=== PATIENT | male | born 1955 | race Two or more races ===

== ENCOUNTER 2024-07-11 05:58 | Inpatient (IN) | payer OTHER, MEDICAID ==
[~2024-07-11] VITALS: Ht 165.1 cm; Wt 74.3 kg
[2024-07-11 06:30] VITALS: PULSE 52; RESP 13; O2SAT 100
[2024-07-11] MEDS: SODIUM CHLORIDE 0.9% 1,000 ML IV ONE (06:34)
--- NOTE | 2024-07-11 06:41 | ED.PDOC ---
HPI (NEURO) HPI Comments 69 y/o M, BIBA, with PMHx of DM presents to the ED for CC of s/p near syncopal episode. EMS reports, patient is coming from home where he had a witnessed near syncopal episode by family members when ambulating to restroom. EMS states, upon arrival to scene patient was A&OX4 and heart rhythm found to be sinus maude. In route to ED, IV fluids were given. Patient denies head injury, LOC, nausea, vomiting, or headache. No other associated symptoms, modifiers, recent injuries or sick contacts present at this time. Chief Complaint: Syncope Time Seen by MD: 06:30 Reviewed Notes: Nurses Notes, Practice Consultant Notes, Medications, Allergies Information Source: Patient, Emergency Med Personnel Mode of Arrival: Ambulatory Severity: Moderate Headache Severity: None Timing: Minutes Duration: Since onset Prehospital treatment: IVF Onset: At rest Circumstances: Spontaneous Symptoms: Near syncope After: Normal Mentation History of: None Modifying factors: Nothing Associated Signs and Symptoms: None Past Medical History PAST MEDICAL HISTORY: DM Surgical History: Denies all surgeries Family History Family History: Unknown Social History Smoker: Non-Smoker Alcohol: Denies ETOH Use Drugs: Denies Drug Use Lives In: Home Constitutional: denies: chills, diaphoresis, fatigue, fever, malaise, sweats, weakness, others EENTM: denies: blurred vision, double vision, ear bleeding, ear discharge, ear drainage, ear pain, ear ringing, eye pain, eye redness, hearing loss, mouth pain, mouth swelling, nasal discharge, nose bleeding, nose congestion, nose pain, photophobia, tearing, throat pain, throat swelling, voice changes, others Respiratory: denies: cough, hemoptysis, orthopnea, SOB at rest, shortness of breath, SOB with excertion, stridor, wheezing, others Cardiovascular: denies: chest pain, dizzy spells, diaphoresis, Dyspnea on exertion, edema, irregular heart beat, left arm pain, lightheadedness, palpitations, PND, syncope, others Gastrointestinal: denies: abdomen distended, abdominal pain, blood streaked bowels, constipated, diarrhea, dysphagia, difficulty swallowing, hematemesis, melena, nausea, poor appetite, poor fluid intake, rectal bleeding, rectal pain, vomiting, others Genitourinary: denies: burning, dysuria, flank pain, frequency, hematuria, incontinence, penile discharge, penile sore, pain, testicle pain, testicle swelling, urgency, others Neurological: reports: fainting; denies: dizziness, headache, left sided numbness, left sided weakness, numbness, paresthesia, pre-existing deficit, right sided numbness, right sided weakness, seizure, speech problems, tingling, tremors, weakness, others Musculoskeletal: denies: back pain, gout, joint pain, joint swelling, muscle pain, muscle stiffness, neck pain, others Integumetry: denies: bruises, change in color, change in hair/nails, dryness, laceration, lesions, lumps, rash, wounds, others Allergic/Immunocompromised: denies: Difficulty Healing, Frequent Infections, Hives, Itching, others Hematologic/Lymphatic: denies: anemia, blood clots, easy bleeding, easy bruising, swollen glands, others Endocrine: denies: excessive hunger, excessive sweating, excessive thirst, excessive urination, flushing, intolerance to cold, intolerance to heat, unexplained weight gain, unexplained weight loss, others Psychiatric: denies: anxiety, bipolar disorder, depression, hopeless, panic disorder, schizophrenia, sleepless, suicidal, others All Other Systems: Reviewed and Negative Physical Exam General Appearance: Moderate Distress HEENT: Normal ENT Inspection, Pharynx Normal, TMs Normal Neck: Full Range of Motion, Non-Tender, Normal, Normal Inspection Respiratory: Chest Non-Tender, Lungs Clear, No Accessory Muscle Use, No Respiratory Distress, Normal Breath Sounds Cardiovascular: Bradycardia, No Edema, No JVD, No Murmur, No Gallop, Normal Peripheral Pulses Breast Exam: Deferred Gastrointestinal: No Organomegaly, Non Tender, No Pulsatile Mass, Normal Bowel Sounds, Soft Genitalia: Deferred Pelvic: Deferred Rectal: Deferred Extremities: No calf tenderness, Normal capillary refill, Normal inspection, Normal range of motion, Non-tender, No pedal edema Musculoskeletal : Apperance: Normal Neurologic: Alert, 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 Was a procedure done?: No Differential Diagnosis (SZ) Seizure: Psychogenic Seizure, Closed Head Injury, CVA/TIA General Weakness: Anemia, Dehydration, Electrolyte imbalance X-Ray, Labs, Meds, VS Vital Signs Date Time Temp Pulse Resp B/P (MAP) Pulse Ox O2 Delivery O2 Flow Rate FiO2 07/11/24 06:42 49 07/11/24 06:35 97.3 54 11 143/74 (97) 100 97.3 07/11/24 06:30 52 13 100 Room Air* 0 21 07/11/24 06:02 49 07/11/24 05:58 98.3 50 16 118/73 (88) 98 98.3 Lab Test 07/11/24 07:04 07/11/24 06:51 Range/Units White Blood Count Pending Red Blood Count Pending Hemoglobin Pending Hematocrit Pending Mean Corpuscular Volume Pending Mean Corpuscular Hemoglobin Pending Mean Corpuscular Hemoglobin Concent Pending Red Cell Distribution Width Pending Platelet Count Pending Mean Platelet Volume Pending Neutrophils (%) (Auto) Pending Lymphocytes (%) (Auto) Pending Monocytes (%) (Auto) Pending Basophils (%) (Auto) Pending Neutrophils # (Auto) Pending Lymphocytes # (Auto) Pending Monocytes # (Auto) Pending Sodium Level Pending Potassium Level Pending Chloride Level Pending Carbon Dioxide Level Pending Anion Gap Pending Blood Urea Nitrogen Pending Creatinine Pending Glomerular Filtration Rate Calc Pending BUN/Creatinine Ratio Pending Serum Glucose Pending Calcium Level Pending Troponin I High Sensitivity Pending POC Glucose 96 70-106 mg/dl Current Medications Medications (Trade) Dose Ordered Sig/Joseph Route Start Time Stop Time Status Last Admin Sodium Chloride 1,000 ml @ 1,000 mls/hr Q1H ONCE IV 07/11/24 06:30 07/11/24 07:29 DC 07/11/24 06:[address] [address] Ph: [phone] DIAGNOSTIC IMAGING Diagnostic Imaging Report : [id number] Signed PATIENT: MORENO TORO ACCT: [id number] UNIT: [id number] : 1955 LOC: ER ROOM / BED: / AGE / SEX: 69 / M ADM STATUS: REG ER SERVICE 2 ORDERING PHYSICIAN: KRISTIN YOU MD PROCEDURE(s): HWOCT - HEAD WITHOUT CONTRAST REASON: syncope ORDER NUMBER(s): [id number], ACCESSION NUMBER(s): [id number] CT HEAD WITHOUT CONTRAST Indication: syncope EXAM DATE: 07/11/2024 06:40 AM COMPARISON: None TECHNIQUE: CT of the head without intravenous contrast. RADIATION DOSE: CTDIvol: 60.33 mGy, DLP: 966.95 mGy*cm FINDINGS: There is no intracranial hemorrhage. There is no extra-axial fluid, mass, mass effect or midline shift. The ventricles are midline and normal in size. Basilar cisterns are patent. Farrell-white differentiation is maintained. The mastoids are well pneumatized. Mild mucosal thickening ethmoids. Imaged portion of the orbits are unremarkable. IMPRESSION: 1. No intracranial hemorrhage or mass effect. ATED BY: FIFI JARRELL MD DICTATED DATE/TIME: 07/11/24723 SIGNED BY: FIFI JARRELL MD SIGNED DATE/TIME: 07/11/24723 CC: Patient alert. Had syncope while going to the bathroom. Vitals stable. Answering questions. Never like this happened to him in the past. Establish intravenous access. Was given fluids. Heart rate was in the low side when paramedics were in the field. Denies chest pain. No leg swelling. Reviewed his history. Explained to the patient. Continue cardiac monitoring. EKG reviewed does not show any acute changes other than sinus bradycardia. Time of 1ST Reevaluation: 07:00 Reevaluation 1ST: Unchanged Patient Education/Counseling: Diagnosis, Treatment Family Education/Counseling: No Family Present Departure 1 Departure Time of Disposition: 06:44 Impression: Primary Impression: Symptomatic bradycardia Additional Impression: Syncope Qualified Codes: R55 - Syncope and collapse Disposition: 09 ADMITTED INPATIENT Admit to: Med Surg Condition: Guarded Critical Care Note Critical Care Time?: Yes (90 min-critical care time only) Critical care comment: Monitor heart rate Stability Stability form required: No Heart Score Heart Score: Heart Score Response (Comments) Value History Slightly Suspicious 0 EKG Normal 0 Age >65 2 Risk Factors 1 or 2 risk factors 1 Troponin Normal limit 0 Total 3 I personally scribed for KRISTIN YOU MD ([email or web address]) on 07/11/24 at 06:41. Electronically submitted by Danisha Rowe ([email or web address]). I personally scribed for KRISTIN YOU MD ([email or web address]) on 07/11/24 at 06:42. Electronically submitted by Danisha Rowe ([email or web address]). I personally scribed for KRISTIN YOU MD ([email or web address]) on 07/11/24 at 07:30. Electronically submitted by Danisha Rowe ([email or web address]). KRISTIN YOU MD Jul 11, 2024 06:41
--- NOTE | 2024-07-11 07:26 | DVH ---
CT HEAD WITHOUT CONTRAST Indication: syncope EXAM DATE: 07/11/2024 06:40 AM COMPARISON: None TECHNIQUE: CT of the head without intravenous contrast. RADIATION DOSE: CTDIvol: 60.33 mGy, DLP: 966.95 mGy*cm FINDINGS: There is no intracranial hemorrhage. There is no extra-axial fluid, mass, mass effect or midline shif t. The ventricles are midline and normal in size. Basilar cisterns are patent. Farrell-white differentia tion is maintained. The mastoids are well pneumatized. Mild mucosal thickening ethmoids. Imaged portion of the orbits are unremarkable. IMPRESSION: 1. No intracranial hemorrhage or mass effect.
[2024-07-11 07:30] VITALS: PULSE 52; RESP 18; O2SAT 99
[2024-07-11 07:31] LABS: Chloride 105 mmol/L (98-107); Sodium 140 mmol/L (136-145)
[2024-07-11 07:32] LABS: Anion Gap 7 (5-15); Basophils # (auto) 0 10 ^3/uL (0-0.2); Basophils % (auto) 0.4 % (0.0-2.0); Calcium 9.1 mg/dL (8.7-10.4); Carbon Dioxide 28 mmol/L (20-31); Eosinophils # (auto) 0.1 10 ^3/uL (0-0.8); Eosinophils % (auto) 1.8 % (0.0-7.0); Hematocrit 41.9 % (41.0-53.0); Hemoglobin 14.4 g/dL (13.5-17.5); Lymphocytes # (auto) 0.8 10 ^3/uL (0.4-5.4); Lymphocytes % (auto) 15.2 % (10.0-50.0); Mean Corpuscular Hemoglobin 30.4 pg (28.0-32.0); Mean Corpuscular Hgb Conc. 34.5 g/dL (32.0-36.0); Mean Corpuscular Volume 88.1 fL (80.0-100.0); Monocytes # (auto) 0.4 10 ^3/uL (0-1.3); Monocytes % (auto) 7.8 % (0.0-12.0); Neutrophils # (auto) 4.1 10 ^3/uL (1.6-8.6); Neutrophils % (auto) 74.8 % (37.0-80.0); Platelet Count (auto) 219 10^3/uL (140-450); Red Blood Cells 4.75 10^6/uL (4.5-5.90); Red Cell Distribution Width 13.6 % (11.8-14.3); White Blood Cell 5.5 10^3/uL (4.4-10.8)
[2024-07-11 07:37] LABS: Blood Urea Nitrogen 12 mg/dL (9-23)
[2024-07-11 07:40] LABS: Glucose 114 mg/dL (74-106)
[2024-07-11] MEDS ORDERED: MORPHINE SULFATE INJ 2 MG/ml SYRG IV PRN (13:45)
[2024-07-11] MEDS ORDERED: ACETAMINOPHEN 325 MG TAB PO PRN (13:45)
[2024-07-11] MEDS ORDERED: NITROGLYCERIN 0.4 MG SL TAB SL PRN (13:45)
[2024-07-11] MEDS ORDERED: ONDANSETRON HCL 4 MG/2 ML VIAL IV PRN (13:45)
--- NOTE | 2024-07-11 13:57 | DVHHP2 ---
History of Present Illness Reason for Visit: Syncope History of Present Illness Derik Bloom is a 69-year-old male with past medical history of diabetes and prostate surgery who presents to the ED with syncope and chest tightness. Patient reports that he was walking to the bathroom when to use a toilet had a bowel movement and when he got up he stated he fell and hit the back of his head on the ground. Patient states that he was not straining when he had the bowel movement. Patient states that he also has chest tightness complaining 3/10 constant and pressure-like. Patient reports that when he breathes in it is difficult. Patient also reports that he has been forgetful for the last several months. Niece Iveth and Nephew Tushar at bedside. Patient denies any shortness of breath, fever, chills, weakness, recent sick contacts, recent travels, abdominal pain, nausea, vomiting, or diarrhea. Endocrine: Diabetes Past Surgical History: Other (Prostate surgery) Family History: Cancer, Other (Dad with lung cancer) Smoke: Quit ALCOHOL: none Drugs: None Lives: with Family Domestic Violence: Neg Review of Systems Constitutional: Yes: Other (Syncope) Cardiovascular: Other (Chest tightness) Allergies: Coded Allergies: NO KNOWN ALLERGIES (Unverified , 07/11/24) Exam Vital Signs Vital Signs Date Time Temp Pulse Resp B/P (MAP) Pulse Ox O2 Delivery O2 Flow Rate FiO2 07/11/24 12:00 58 16 120/64 (82) 99 07/11/24 07:30 Room Air* 0 21 07/11/24 07:30 96.9 96.9 General Appearance: Alert, Oriented X3, Cooperative, No acute distress HEENT: PERRLA, EOMI, Mucous membr. moist/pink Respiratory: Clear to auscultation, Normal air movement Cardiovascular: Normal S1, Normal S2, No murmurs Abdominal: Normal bowel sounds, Soft, No tenderness, No hepatospenomegaly, No masses Extremities: No clubbing, No cyanosis, No edema, Normal pulses, No tenderness/swelling Skin: No significant lesion Neuro: Normal speech, Strength at 5/5 X4 ext, Normal tone, Sensation intact Psych/Mental Status: Mental status NL, Mood NL Labs/Xrays Labs Test 07/11/24 07:04 07/11/24 06:51 Range/Units White Blood Count 5.5 4.4-10.8 10^3/uL Red Blood Count 4.75 4.5-5.90 10^6/uL Hemoglobin 14.4 13.5-17.5 g/dL Hematocrit 41.9 41.0-53.0 % Mean Corpuscular Volume 88.1 80.0-100.0 fL Mean Corpuscular Hemoglobin 30.4 28.0-32.0 pg Mean Corpuscular Hemoglobin Concent 34.5 32.0-36.0 g/dL Red Cell Distribution Width 13.6 11.8-14.3 % Platelet Count 219 140-450 10^3/uL Mean Platelet Volume 7.6 6.9-10.8 fL Neutrophils (%) (Auto) 74.8 37.0-80.0 % Lymphocytes (%) (Auto) 15.2 10.0-50.0 % Monocytes (%) (Auto) 7.8 0.0-12.0 % Eosinophils (%) (Auto) 1.8 0.0-7.0 % Basophils (%) (Auto) 0.4 0.0-2.0 % Neutrophils # (Auto) 4.1 1.6-8.6 10 ^3/uL Lymphocytes # (Auto) 0.8 0.4-5.4 10 ^3/uL Monocytes # (Auto) 0.4 0-1.3 10 ^3/uL Eosinophils # (Auto) 0.1 0-0.8 10 ^3/uL Basophils # (Auto) 0 0-0.2 10 ^3/uL Nucleated Red Blood Cells 0.0 % Sodium Level 140 136-145 mmol/L Potassium Level 4.0 3.5-5.1 mmol/L Chloride Level 105 98-107 mmol/L Carbon Dioxide Level 28 20-31 mmol/L Anion Gap 7 5-15 Blood Urea Nitrogen 12 9-23 mg/dL Creatinine 0.80 0.700-1.30 mg/dL Glomerular Filtration Rate Calc 95 >90 mL/min BUN/Creatinine Ratio 15.0 10.0-20.0 Serum Glucose 114 H 74-106 mg/dL Calcium Level 9.1 8.7-10.4 mg/dL Troponin I High Sensitivity < 3 L </=54 ng/L POC Glucose 96 70-106 mg/dl CHEST RADIOGRAPH Indication: chest tightness Technique: Single frontal view of the chest was obtained Comparison: None FINDINGS: Lines and Tubes: None Lungs: No focal consolidation. Left lower lung zone linear density. Pleura: No effusion. No pneumothorax. Cardiomediastinal contours: Unremarkable Bones: No acute osseous abnormality. IMPRESSION: Left lower lung zone linear atelectasis. Otherwise, no evidence of acute cardiopulmonary disease. CT HEAD WITHOUT CONTRAST Indication: syncope EXAM DATE: 07/11/2024 06:40 AM COMPARISON: None TECHNIQUE: CT of the head without intravenous contrast. RADIATION DOSE: CTDIvol: 60.33 mGy, DLP: 966.95 mGy*cm FINDINGS: There is no intracranial hemorrhage. There is no extra-axial fluid, mass, mass effect or midline shift. The ventricles are midline and normal in size. Basilar cisterns are patent. Farrell-white differentiation is maintained. The mastoids are well pneumatized. Mild mucosal thickening ethmoids. Imaged portion of the orbits are unremarkable. IMPRESSION: 1. No intracranial hemorrhage or mass effect. Assessment/Plan Assessment/Plan Assessment Autonomic imbalance Symptomatic bradycardia ?Possible vasovagal response Chest pain on breathing History of diabetes type 2 History of prostate cancer Plan Admit to tele NS [address] head noted Troponin -2 EKG UA Chest x-ray Hemoglobin A1c ISS and Accu-Cheks Echo ordered UDS TSH Lipid panel Hemoglobin A1c ISS and Accu-Cheks Mag level Aspirin Statin Diet Home medications reconciled DVT prophylaxis-Lovenox PUD prophylaxis-not indicated no history of GERD or GI bleed Discussed plan of care with patient, patient's niece and nephew, and nurse Plan discussed with: Patient My Orders Orders - GINA VALENZUELA Procedure Category Date Status Time * Cardiology Consult CONS 07/11/24 Transmitted 13:34 Echo 2d Mode Cardiac US 07/11/24 Transmitted DOP 13:34 Drug Screen LAB 07/11/24 Transmitted 13:34 Thyroid Stimulating LAB 07/11/24 Transmitted Hormone 13:34 Lipid Panel LAB 07/11/24 Transmitted 13:34 Hemoglobin A1c LAB 07/11/24 Transmitted 13:34 Urinalysis LAB 07/11/24 Transmitted 13:34 Admit ADMIT 07/11/24 Transmitted 13:34 Allergies PAIGE 07/11/24 Transmitted 13:34 Code Status CODE 07/11/24 Transmitted 13:34 Ondansetron Hcl PHA 07/11/24 Transmitted (Zofran) 13:45 Enoxaparin Sodium PHA 07/12/24 Transmitted (Lovenox) 10:00 Complete Blood Count LAB 07/12/24 Verified 04:00 Comprehensive LAB 07/12/24 Verified Metabolic Panel 04:00 Cardiac DIET 07/11/24 Transmitted Diet-2gna,Lofat,Lochol Dinner Acetaminophen Tablet PHA 07/11/24 Transmitted (Tylenol Tablet) 13:45 Nitroglycerin PHA 07/11/24 Transmitted Sublingual (Ntrostat 13:45 Morphine Sulfate PHA 07/11/24 Transmitted Injection 13:45 Stat Ekg For Chest PAIGE 07/11/24 Transmitted Pain 13:34 Notify Md Of Changes [facility] 07/11/24 Transmitted From Base 13:34 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
[2024-07-11 14:07] LABS: Triglycerides 73 mg/dL (< 150)
[2024-07-11 14:08] LABS: LDL Cholesterol 84 mg/dL (< 100)
[2024-07-11 14:09] LABS: Cholesterol 127 mg/dL (< 200); HDL Cholesterol 34 mg/dL (40-59)
--- NOTE | 2024-07-11 14:46 | DVH ---
CHEST RADIOGRAPH Indication: chest tightness Technique: Single frontal view of the chest was obtained Comparison: None FINDINGS: Lines and Tubes: None Lungs: No focal consolidation. Left lower lung zone linear density. Pleura: No effusion. No pneumothorax. Cardiomediastinal contours: Unremarkable Bones: No acute osseous abnormality. IMPRESSION: Left lower lung zone linear atelectasis. Otherwise, no evidence of acute cardiopulmonary disease.
[2024-07-11] MEDS: ENOXAPARIN SOD 40 MG/0.4 ML SYRINGE SC ONE (15:07)
--- NOTE | 2024-07-11 16:02 | DVHINCON2 ---
Date Seen: Jul 11, 2024 Referring Physician RACHEL Bragg Reason for Consultation Syncope and bradycardia History of Present Illness This 69-year-old male, mainly Maltese-speaking, presents in the ED with a chief complaint of syncope. The patient reports syncopal episode right after using the restroom, as he was washing his hands started with dizziness leading to syncopal episodes. In the emergency department the patient underwent a 12 lead ECG revealing sinus bradycardia. There is no sinus pauses or AV blocks noted. The patient denies lightheadedness, chest pain, palpitations, shortness of breath, or dyspnea. Significant past medical history of diabetes type 2, prostate cancer status post prostatectomy. Past Medical History As stated in HPI Past Surgical History Prostatectomy Family History Reviewed, non-contributory to the management of this case. Social History The patient lives at home, denies smoking, alcohol or illicit drugs abuse. Allergies: Coded Allergies: NO KNOWN ALLERGIES (Unverified , 07/11/24) Current Medications Current Medications Medications (Trade) Dose Ordered Sig/Joseph Route PRN Reason Start Time Stop Time Status Last Admin Ondansetron HCl (Zofran) 4 mg Q4HP PRN IV NAUSEA / VOMITING 07/11/24 13:45 Enoxaparin Sodium (Lovenox) 40 mg DAILY SC 07/12/24 10:00 Acetaminophen (Tylenol Tablet) 650 mg Q6HP PRN PO PAIN SCALE 1-3 OR TEMP>100.4 07/11/24 13:45 Nitroglycerin (Ntrostat Sublingual) 0.4 mg Q5MINP PRN SL FOR CHEST PAIN 07/11/24 13:45 Morphine Sulfate 2 mg Q30M PRN IV FOR CHEST PAIN 07/11/24 13:45 Review of Systems Constitutional: No symptom reported Ears, Nose, & Throat: No symptom reported Eyes: No symptom reported Neurological: Syncopal episode Pulmonary/Respiratory: No symptom reported Cardiovascular: Sinus bradycardia Gastrointestinal: No symptom reported Genitourinary: No symptom reported Musculoskeletal: No symptom reported Skin: No symptom reported Psychiatric: No symptom reported Endocrine: No symptom reported Hematologic/Lymphatic: No symptom reported Vital Signs Vital Signs Date Time Temp Pulse Resp B/P (MAP) Pulse Ox O2 Delivery O2 Flow Rate FiO2 07/11/24 14:00 49 16 110/53 (72) 98 07/11/24 07:30 Room Air* 0 21 07/11/24 07:30 96.9 96.9 Physical Exam INITIAL VITAL SIGNS: Reviewed by me GENERAL: Alert and interactive. No acute distress. HEAD: Head is normocephalic and atraumatic. EYES: EOMI, PERRL. No scleral icterus. No conjunctival injection. ENT: Moist mucous membranes. NECK: Supple, No masses, Full range of motion. RESPIRATORY: No tachypnea. Clear breath sounds bilaterally. No wheezing, rales, rhonchi. CV: Sinus bradycardia. No sick sinus syndrome, no AVblock. No dyspnea GI/: Active bowel sounds, soft, nondistended, nontender. No guarding. No rebound. No masses. No CVA tenderness. INTEGUMENTARY: Warm and dry. No obvious rashes. NEUROLOGIC: Alert and oriented. Face is symmetric. Speech is normal. Moves all extremities equally. Labs/Diagnostic Data Labs Test 07/11/24 07:04 07/11/24 06:51 Range/Units White Blood Count 5.5 4.4-10.8 10^3/uL Red Blood Count 4.75 4.5-5.90 10^6/uL Hemoglobin 14.4 13.5-17.5 g/dL Hematocrit 41.9 41.0-53.0 % Mean Corpuscular Volume 88.1 80.0-100.0 fL Mean Corpuscular Hemoglobin 30.4 28.0-32.0 pg Mean Corpuscular Hemoglobin Concent 34.5 32.0-36.0 g/dL Red Cell Distribution Width 13.6 11.8-14.3 % Platelet Count 219 140-450 10^3/uL Mean Platelet Volume 7.6 6.9-10.8 fL Neutrophils (%) (Auto) 74.8 37.0-80.0 % Lymphocytes (%) (Auto) 15.2 10.0-50.0 % Monocytes (%) (Auto) 7.8 0.0-12.0 % Eosinophils (%) (Auto) 1.8 0.0-7.0 % Basophils (%) (Auto) 0.4 0.0-2.0 % Neutrophils # (Auto) 4.1 1.6-8.6 10 ^3/uL Lymphocytes # (Auto) 0.8 0.4-5.4 10 ^3/uL Monocytes # (Auto) 0.4 0-1.3 10 ^3/uL Eosinophils # (Auto) 0.1 0-0.8 10 ^3/uL Basophils # (Auto) 0 0-0.2 10 ^3/uL Nucleated Red Blood Cells 0.0 % Sodium Level 140 136-145 mmol/L Potassium Level 4.0 3.5-5.1 mmol/L Chloride Level 105 98-107 mmol/L Carbon Dioxide Level 28 20-31 mmol/L Anion Gap 7 5-15 Blood Urea Nitrogen 12 9-23 mg/dL Creatinine 0.80 0.700-1.30 mg/dL Glomerular Filtration Rate Calc 95 >90 mL/min BUN/Creatinine Ratio 15.0 10.0-20.0 Serum Glucose 114 H 74-106 mg/dL Hemoglobin A1c 6.1 H <5.7 % A1C Calcium Level 9.1 8.7-10.4 mg/dL Magnesium Level 2.0 1.6-2.6 mg/dL Troponin I High Sensitivity < 3 L </=54 ng/L Triglycerides Level 73 < 150 mg/dL Cholesterol Level 127 < 200 mg/dL LDL Cholesterol 84 < 100 mg/dL HDL Cholesterol 34 L 40-59 mg/dL Thyroid Stimulating Hormone (TSH) 1.66 0.55-4.78 uIU/mL POC Glucose 96 70-106 mg/dl PROCEDURE(s): CXR1 - CHEST XRAY 1 VIEW REASON: chest tightness ORDER NUMBER(s): [id number], ACCESSION NUMBER(s): [id number] CHEST RADIOGRAPH Indication: chest tightness Technique: Single frontal view of the chest was obtained Comparison: None FINDINGS: Lines and Tubes: None Lungs: No focal consolidation. Left lower lung zone linear density. Pleura: No effusion. No pneumothorax. Cardiomediastinal contours: Unremarkable Bones: No acute osseous abnormality. IMPRESSION: Left lower lung zone linear atelectasis. Otherwise, no evidence of acute cardiopulmonary disease. Assessment Syncope and collapse to rule out cardiac etiology Possible vasovagal Sinus bradycardia Rule out carotid stenosis Type 2 diabetes hx prostate cancer Plan/Recommendation Plan/Recommendation (Dr. Bey ): * Echocardiogram to evaluate cardiac function * Carotid ultrasound * Avoid AV juan blocking agent Continue to monitor on telemetry unit. Close cardiac surveillance for possible SSS or AV block or pauses. This medical document was created using an electronic medical record system with voice recognition software and computerized dictation system. Although this document has been carefully reviewed, there might still be some phonetic and typographical errors. Occasional wrong-word or ``sound-alike substitutions may have occurred due to the inherent limitations of voice recognition software. These areas are purely typographical due to imperfections of the software programs and do not reflect any compromise in the patient's medical care. Please read the chart carefully and recognize, using context, where these substitutions have occurred. Plan discussed with: Patient Plan discussed with: Patient NYHA Physical activity limitations: NA Date of Service: Jul 11, 2024 Billing Provider: ABY BEY MD Cardiology Common Codes: CONSULT ONLY Cardiology Consultation Codes: [id number] CONSULT <45MIN ROCKY VILLALOBOS EMERGENCY DETAIL DRIVER Jul 11, 2024 16:02
[2024-07-11] MEDS ORDERED: DEXTROSE (50%) 50ML SYRG IV PRN (17:00)
[2024-07-11] MEDS: ACCU-CHEK COMFORT CURVE STRIP VI SCH (17:16)
[2024-07-11] MEDS: InsuLIN REG 1unit/0.01ml Soln (100units/ml) SC SCH (17:19)
--- NOTE | 2024-07-11 19:45 | DVH ---
Carotid Duplex Date: 07/11/2024 04:28 PM Clinical History: syncope Comparison: None Technique: Duplex Doppler evaluation of the extracranial carotid and vertebral arteries including col or Doppler and spectral/pulsed waveform analysis was performed. Findings: RIGHT SIDE: The peak systolic velocities are 82.8 cm/s in the distal CCA and 83.6 cm/s in the proximal ICA.The IC A/CCA ratio is less than 2. The external carotid artery is patent with peak systolic velocity of 92 cm/s proximally. There is appropriate antegrade flow in the right vertebral artery, 85.6 cm/s LEFT SIDE: The peak systolic velocities are 69.8 cm/s in the distal CCA and 107.5 cm/s in the proximal ICA.. The ICA/CCA ratio is less than 2. The external carotid artery is patent with peak systolic velocity of 90.2 cm/s proximally. There is appropriate antegrade flow in the left vertebral artery, IMPRESSION: 1. No hemodynamically significant stenosis noted in the right carotid system. 2. No hemodynamically significant stenosis noted in the left carotid system. 3. Reference: Radiology 2003; 229:340-346
[2024-07-11 19:49] LABS: Urine Bacteria None Seen /hpf (None Seen)
[2024-07-11 19:58] LABS: Urine Blood Negative /uL (Negative); Urine Clarity Clear (Clear); Urine Color Light-Yellow (Yellow); Urine Protein, UAD Negative (Negative); Urine Specific Gravity 1.015 (1.001-1.035); Urine Squamous Epithelial Cell None Seen /hpf (<5); Urine Urobilinogen Normal (Negative); Urine WBC 3 /HPF (0-3)
[2024-07-11 20:00] VITALS: PULSE 53; RESP 10; O2SAT 96
[2024-07-11 20:08] LABS: Amphetamine Screen, Urine Neg (NEGATIVE); Barbiturate Scree,Urine Neg (NEGATIVE); Benzodiazephine Screen, Urine Neg (NEGATIVE); Cannabinoid Screen, Urine Neg (NEGATIVE); Cocaine Screen, Urine Neg (NEGATIVE); Opiate Scree,Urine Neg (NEGATIVE); Phencyclidine Screen, Urine Neg (NEGATIVE)
--- NOTE | 2024-07-11 20:28 | DVHINCON2 ---
Date Seen: Jul 11, 2024 Referring Physician RACHEL Bragg Reason for Consultation Syncope and bradycardia History of Present Illness This is a 69-year-old male, mainly Frisian-speaking with a PMH of diabetes type 2, prostate cancer status post prostatectomy who presented to the ED with complaints of syncope. The patient reports syncopal episode right after using the restroom, as he was washing his hands started with dizziness leading to syncopal episodes. In the emergency department the patient underwent a 12 lead ECG revealing sinus bradycardia. There is no sinus pauses or AV blocks noted. The patient denies lightheadedness, chest pain, palpitations, shortness of breath, or dyspnea. Chest x-ray shows left lower lung zone linear atelectasis. CBC is unremarkable. Troponin is negative. UDS is negative. UA is negative for infection. CT brain shows no intracranial hemorrhage or mass effect. Patient was admitted to the hospital. I am asked to consult on this patient. Allergies: Coded Allergies: NO KNOWN ALLERGIES (Unverified , 07/11/24) Current Medications Current Medications Medications (Trade) Dose Ordered Sig/Joseph Route PRN Reason Start Time Stop Time Status Last Admin Ondansetron HCl (Zofran) 4 mg Q4HP PRN IV NAUSEA / VOMITING 07/11/24 13:45 Enoxaparin Sodium (Lovenox) 40 mg DAILY SC 07/12/24 10:00 Acetaminophen (Tylenol Tablet) 650 mg Q6HP PRN PO PAIN SCALE 1-3 OR TEMP>100.4 07/11/24 13:45 Nitroglycerin (Ntrostat Sublingual) 0.4 mg Q5MINP PRN SL FOR CHEST PAIN 07/11/24 13:45 Morphine Sulfate 2 mg Q30M PRN IV FOR CHEST PAIN 07/11/24 13:45 Diagnostic Test (Pha) (Accu-Chek Comfort Curve T) 1 strip ACHS 07/11/24 17:00 07/11/24 17:16 Insulin Human Regular (InsuLIN R) ACHS SC 07/11/24 17:00 07/11/24 17:19 Dextrose 50 ml UD PRN IV Blood Sugar LESS THAN 60 07/11/24 17:00 Review of Systems Constitutional: No symptom reported Ears, Nose, & Throat: No symptom reported Eyes: No symptom reported Neurological: Syncopal episode Pulmonary/Respiratory: No symptom reported Cardiovascular: Sinus bradycardia Gastrointestinal: No symptom reported Genitourinary: No symptom reported Musculoskeletal: No symptom reported Skin: No symptom reported Psychiatric: No symptom reported Endocrine: No symptom reported Hematologic/Lymphatic: No symptom reported Vital Signs Vital Signs Date Time Temp Pulse Resp B/P (MAP) Pulse Ox O2 Delivery O2 Flow Rate FiO2 07/11/24 18:00 55 16 123/57 (79) 97 07/11/24 07:30 Room Air* 0 21 07/11/24 07:30 96.9 96.9 Physical Exam GENERAL: Alert and oriented x 3. No acute distress. EYES: PERRL, EOMI. Anicteric. HENT: Moist mucous membranes. LUNGS: Clear to auscultation bilaterally. CARDIOVASCULAR: Sinus bradycardia. No sick sinus syndrome, no AVblock. ABDOMEN: Soft, non-tender and non-distended. EXTREMITIES: No edema. NEUROLOGIC: No focal neurological deficits. SKIN: Warm, dry. Labs/Diagnostic Data Labs Test 07/11/24 19:30 07/11/24 17:14 07/11/24 07:04 Range/Units Urine Color Light-yellow Yellow Urine Clarity Clear Clear Urine pH 7.0 5.0-9.0 Urine Specific [place] 1.015 1.001-1.035 Urine Protein Negative Negative Urine Ketones Negative Negative Urine Blood Negative Negative /uL Urine Nitrite Negative Negative Urine Bilirubin Negative Negative Urine Urobilinogen Normal Negative mg/dL Urine Leukocyte Esterase Negative Negative /uL Urine RBC 1 0 - 3 /hpf Urine Microscopic WBC 3 0-3 /HPF Urine Squamous Epithelial Cells None seen <5 /hpf Urine Bacteria None seen None Seen /hpf Urine Glucose Trace Normal mg/dL Urine Opiates Screen Neg NEGATIVE Urine Fentanyl Screen Neg NEGATIVE Urine Barbiturates Screen Neg NEGATIVE Urine Phencyclidine Screen Neg NEGATIVE Urine Amphetamines Screen Neg NEGATIVE Urine Benzodiazepines Screen Neg NEGATIVE Urine Cocaine Screen Neg NEGATIVE Urine Cannabinoids Screen Neg NEGATIVE POC Glucose 152 H 70-106 mg/dl White Blood Count 5.5 4.4-10.8 10^3/uL Red Blood Count 4.75 4.5-5.90 10^6/uL Hemoglobin 14.4 13.5-17.5 g/dL Hematocrit 41.9 41.0-53.0 % Mean Corpuscular Volume 88.1 80.0-100.0 fL Mean Corpuscular Hemoglobin 30.4 28.0-32.0 pg Mean Corpuscular Hemoglobin Concent 34.5 32.0-36.0 g/dL Red Cell Distribution Width 13.6 11.8-14.3 % Platelet Count 219 140-450 10^3/uL Mean Platelet Volume 7.6 6.9-10.8 fL Neutrophils (%) (Auto) 74.8 37.0-80.0 % Lymphocytes (%) (Auto) 15.2 10.0-50.0 % Monocytes (%) (Auto) 7.8 0.0-12.0 % Eosinophils (%) (Auto) 1.8 0.0-7.0 % Basophils (%) (Auto) 0.4 0.0-2.0 % Neutrophils # (Auto) 4.1 1.6-8.6 10 ^3/uL Lymphocytes # (Auto) 0.8 0.4-5.4 10 ^3/uL Monocytes # (Auto) 0.4 0-1.3 10 ^3/uL Eosinophils # (Auto) 0.1 0-0.8 10 ^3/uL Basophils # (Auto) 0 0-0.2 10 ^3/uL Nucleated Red Blood Cells 0.0 % Sodium Level 140 136-145 mmol/L Potassium Level 4.0 3.5-5.1 mmol/L Chloride Level 105 98-107 mmol/L Carbon Dioxide Level 28 20-31 mmol/L Anion Gap 7 5-15 Blood Urea Nitrogen 12 9-23 mg/dL Creatinine 0.80 0.700-1.30 mg/dL Glomerular Filtration Rate Calc 95 >90 mL/min BUN/Creatinine Ratio 15.0 10.0-20.0 Serum Glucose 114 H 74-106 mg/dL Hemoglobin A1c 6.1 H <5.7 % A1C Calcium Level 9.1 8.7-10.4 mg/dL Magnesium Level 2.0 1.6-2.6 mg/dL Troponin I High Sensitivity < 3 L </=54 ng/L B-Type Natriuretic Peptide 10.31 0-100 pg/mL Triglycerides Level 73 < 150 mg/dL Cholesterol Level 127 < 200 mg/dL LDL Cholesterol 84 < 100 mg/dL HDL Cholesterol 34 L 40-59 mg/dL Thyroid Stimulating Hormone (TSH) 1.66 0.55-4.78 uIU/mL Assessment Syncope and collapse to rule out cardiac etiology. Possible vasovagal. Sinus bradycardia. Rule out carotid stenosis. Type 2 diabetes. History of prostate cancer. Plan/Recommendation I agree with your ongoing assessment and care of plan. Patient has been seen by Tracy Boyd NP on my behalf. We have discussed the plan with the patient. Continue to monitor on telemetry unit. Close cardiac surveillance for possible SSS or AV block or pauses. Echocardiogram to evaluate cardiac function. Carotid ultrasound. Avoid AV juan blocking agent. Additional plan as per the hospital course. Plan discussed with: Patient NYHA Physical activity limitations: NA Date of Service: Jul 11, 2024 Billing Provider: ABY BEY MD Cardiology Common Codes: [id number] INP/OBS CARE (High) Cardiology Consultation Codes: [id number] CONSULT <45MIN ABY BEY MD Jul 11, 2024 20:28
--- NOTE | 2024-07-11 21:06 | DVHSR ---
APPROVED REPORT EXAM: Two-dimensional and M-mode echocardiogram with Doppler and color Doppler. Blood Pressure: 120/5564 mmHg INDICATION Syncope RISK FACTORS Height: 120, Weight: 64 DIMENSIONS LVDd4.9 (3.8-5.7cm)LA (2D)4.4 (1.9-4.0cm)Aortic Root3.3 (2.0-3.7cm) LVDs3.4 (2.5-4.0cm)LA (MM) (1.9-4.0cm)Aortic Cusp Exc1.3 (1.5-2.0cm) EF (%) 57.0 (55-70%)Rt. Atrium3.4 (1.9-4.0cm)Asc. Aorta cm IVSd0.9 (0.7-1.1cm)RV (D)3.7 (1.8-2.4cm) PWd0.8 (0.7-1.1cm) Mitral Valve MitralMitral Stenosis E wave0.57m/sMV Mean GR.mmHg A wave0.96m/sMV Peak GR.34mmHg E/A ratio0.62D MVAcm2 DECEL [id number] 1/2 [place] Aortic Valve Aortic ValveAortic Stenosis V10.73m/[place] Mean GR.3mmHg V21.24m/[place] Peak GR.6mmHg LVOT Diameter1.9 (1.8-2.4cm)Doppler AVA1.67cm2 Conclusion NORMAL LV EF IS 65% NORMAL VALVES NORMAL RV FUNCTION AND SIZE NO EFFUSION
[2024-07-12] VITALS (9 sets, daily range): BP systolic 103–143; BP diastolic 57–72; PULSE 47–65; RESP 16–18; TEMP 97.6–98.9; O2SAT 94–100
[2024-07-12] MEDS ORDERED: METF-370 PO (03:06)
[2024-07-12] MEDS ORDERED: IBUP-1455 PO (03:06)
[2024-07-12 07:28] LABS: Basophils # (auto) 0 10 ^3/uL (0-0.2); Basophils % (auto) 0.5 % (0.0-2.0); Eosinophils # (auto) 0.2 10 ^3/uL (0-0.8); Eosinophils % (auto) 3.2 % (0.0-7.0); Hematocrit 42.8 % (41.0-53.0); Hemoglobin 14.8 g/dL (13.5-17.5); Lymphocytes # (auto) 1.5 10 ^3/uL (0.4-5.4); Lymphocytes % (auto) 30.4 % (10.0-50.0); Mean Corpuscular Hemoglobin 30.3 pg (28.0-32.0); Mean Corpuscular Hgb Conc. 34.6 g/dL (32.0-36.0); Mean Corpuscular Volume 87.5 fL (80.0-100.0); Monocytes # (auto) 0.4 10 ^3/uL (0-1.3); Monocytes % (auto) 8.1 % (0.0-12.0); Neutrophils # (auto) 2.8 10 ^3/uL (1.6-8.6); Neutrophils % (auto) 57.8 % (37.0-80.0); Nucleated Red Blood Cells % 0.1 %; Platelet Count (auto) 228 10^3/uL (140-450); Red Blood Cells 4.89 10^6/uL (4.5-5.90); Red Cell Distribution Width 13.6 % (11.8-14.3); White Blood Cell 4.9 10^3/uL (4.4-10.8)
[2024-07-12 07:39] LABS: Alanine Aminotransferase 21 U/L (7-40); Albumin 4.2 g/dL (3.2-4.8); Alkaline Phosphatase 60 U/L (46-116); Anion Gap 7 (5-15); BUN/Creatinine Ratio 13.4 (10.0-20.0); Blood Urea Nitrogen 11 mg/dL (9-23); Calcium 9.4 mg/dL (8.7-10.4); Carbon Dioxide 27 mmol/L (20-31); Chloride 104 mmol/L (98-107); Potassium 3.7 mmol/L (3.5-5.1); Sodium 138 mmol/L (136-145); Total Protein 7.2 g/dL (5.7-8.2)
[2024-07-12 07:40] LABS: Bilirubin, Total 0.6 mg/dL (0.2-1.0)
[2024-07-12 07:43] LABS: Aspartate Aminotransferase 10 U/L (13-40); Glucose 124 mg/dL (74-106)
[2024-07-12] MEDS: ENOXAPARIN SOD 40 MG/0.4 ML SYRINGE SC SCH (08:57)
--- NOTE | 2024-07-12 12:46 | DVHPN2 ---
Reviewed: Care Plan, H&P, Labs, Medications, Previous Orders, Radiology Changes from previous H/P or p: No Changes Cardiovascular: Other (Chest tightness) Objective Vitals Vital Signs Date Time Temp Pulse Resp B/P (MAP) Pulse Ox O2 Delivery O2 Flow Rate FiO2 07/12/24 08:30 97.6 53 16 143/70 (94) 97 97.6 07/12/24 03:06 Room Air* 0 21 Intake/Output Intake and Output 07/12/24 07:00 Intake Total 200 ml Output Total 500 ml Balance -300 ml Intake Oral 200 ml Output Urine Total 500 ml # Voids 1 Medications Current Medications Medications Dose Ordered Sig/Joseph Route Start Time Stop Time Status Last Admin Dose Admin Ondansetron HCl 4 mg Q4HP PRN IV 07/11/24 13:45 Enoxaparin Sodium 40 mg DAILY SC 07/12/24 10:00 07/12/24 08:57 40 MG Acetaminophen 650 mg Q6HP PRN PO 07/11/24 13:45 Nitroglycerin 0.4 mg Q5MINP PRN SL 07/11/24 13:45 Morphine Sulfate 2 mg Q30M PRN IV 07/11/24 13:45 Diagnostic Test (Pha) 1 strip ACHS 07/11/24 17:00 07/12/24 06:14 1 STRIP Insulin Human Regular ACHS SC 07/11/24 17:00 07/11/24 17:19 2 UNITS Dextrose 50 ml UD PRN IV 07/11/24 17:00 Laboratory Results Laboratory Tests 07/12/24 07:04 Chemistry Test 07/12/24 07:04 Albumin 4.2 g/dL (3.2-4.8) Calcium Level 9.4 mg/dL (8.7-10.4) Total Protein 7.2 g/dL (5.7-8.2) LFT Test 07/12/24 07:04 Alanine Aminotransferase (ALT) 21 U/L (7-40) Alkaline Phosphatase 60 U/L (46-116) Aspartate Amino Transferase (AST) 10 U/L (13-40) L Total Bilirubin 0.6 mg/dL (0.2-1.0) Urinalysis Test 07/11/24 19:30 Urine Color Light-yellow (Yellow) Urine Clarity Clear (Clear) Urine pH 7.0 (5.0-9.0) Urine Specific [place] 1.015 (1.001-1.035) Urine Protein Negative (Negative) Urine Ketones Negative (Negative) Urine Blood Negative /uL (Negative) Urine Nitrite Negative (Negative) Urine Bilirubin Negative (Negative) Urine Urobilinogen Normal mg/dL (Negative) Urine Leukocyte Esterase Negative /uL (Negative) Urine RBC 1 /hpf (0 - 3) Urine Microscopic WBC 3 /HPF (0-3) Urine Squamous Epithelial Cells None seen /hpf (<5) Urine Bacteria None seen /hpf (None Seen) Urine Glucose Trace mg/dL (Normal) Labs and/or images reviewed: Labs reviewed by me, Image(s) reviewed by me Assessment/Plan Assessment/Plan Syncope unknown etiology: CT head negative, carotid ultrasound negative, chest x-ray negative, echocardiogram normal with 65% ejection fraction Symptomatic bradycardia heart rate of 45, cardiology consult by Dr. Goldsmith appreciated awaiting further management TSH normal CBC and CMP within normal limits Troponin negative BNP normal Diabetes: Insulin sliding scale History of prostate surgery Time Spent 45 minutes Advanced care planning time 20 minutes Patient is full code Plan discussed with: Patient My Orders Orders - GHANSHYAM MIGUEL MD Procedure Category Date Status Time Head Without Contrast CT 07/12/24 Taken 11:06 Date of Service: Jul 12, 2024 Billing Provider: GHANSHYAM MIGUEL MD Common Visit Codes: [id number] INP/OBS CARE(HIGH) Secondary Visit Codes: [id number] CARE PLAN 30 MINUTES GHANSHYAM MIGUEL MD Jul 12, 2024 12:46
--- NOTE | 2024-07-12 15:06 | DVH ---
CLINICAL INFORMATION: 69 years old, Male; Complaints of numbness on the left side of his head.. TECHNIQUE: Axial imaging was obtained through the brain without contrast. Coronal and sagittal reform atted images were obtained, reviewed, and stored. Images were reviewed in brain and bone windows. Al l CT scans at this medical facility are performed using dose modulation techniques as appropriate to a performed exam including the following: Automated exposure control was utilized; adjustment of the MA and/or KV according to patient size; and use of iterative reconstruction technique. CTDIvol = 63.2 3 mGy DLP = 1119.4 mGy-cm COMPARISON: CT HEAD WITHOUT CONTRAST on DOS: 07/11/24 FINDINGS: There is no acute intracranial hemorrhage. No mass effect or midline shift. Stable small pa renchymal calcification in the left parietal lobe medially. The ventricles and sulci are within lance l limits in size for age. Basal cisterns are patent. The calvarium is unremarkable. Paranasal sinuse s and mastoid air cells are clear. IMPRESSION: No CT evidence of acute intracranial abnormality.
--- NOTE | 2024-07-12 15:20 | DVHPN2 ---
Subjective No cardiac events reported Denies chest pain or shortness of breath Reviewed: Care Plan, H&P, Labs, Medications, Previous Orders, Radiology Changes from previous H/P or p: No Changes Cardiovascular: Other (Chest tightness) Objective Vitals Vital Signs Date Time Temp Pulse Resp B/P (MAP) Pulse Ox O2 Delivery O2 Flow Rate FiO2 07/12/24 12:30 97.8 55 16 126/69 (88) 98 97.8 07/12/24 03:06 Room Air* 0 21 Intake/Output Intake and Output 07/12/24 07:00 Intake Total 200 ml Output Total 500 ml Balance -300 ml Intake Oral 200 ml Output Urine Total 500 ml # Voids 1 General Appearance: Alert, Oriented X3, Cooperative, No acute distress Lungs: Clear to auscultation, Normal air movement Cardiovascular: Regular rate, Normal S1 Abdomen: Normal bowel sounds Medications Current Medications Medications Dose Ordered Sig/Joseph Route Start Time Stop Time Status Last Admin Dose Admin Ondansetron HCl 4 mg Q4HP PRN IV 07/11/24 13:45 Enoxaparin Sodium 40 mg DAILY SC 07/12/24 10:00 07/12/24 08:57 40 MG Acetaminophen 650 mg Q6HP PRN PO 07/11/24 13:45 Nitroglycerin 0.4 mg Q5MINP PRN SL 07/11/24 13:45 Morphine Sulfate 2 mg Q30M PRN IV 07/11/24 13:45 Diagnostic Test (Pha) 1 strip ACHS 07/11/24 17:00 07/12/24 11:30 1 STRIP Insulin Human Regular ACHS SC 07/11/24 17:00 07/11/24 17:19 2 UNITS Dextrose 50 ml UD PRN IV 07/11/24 17:00 Laboratory Results Laboratory Tests 07/12/24 07:04 Chemistry Test 07/12/24 07:04 Albumin 4.2 g/dL (3.2-4.8) Calcium Level 9.4 mg/dL (8.7-10.4) Total Protein 7.2 g/dL (5.7-8.2) LFT Test 07/12/24 07:04 Alanine Aminotransferase (ALT) 21 U/L (7-40) Alkaline Phosphatase 60 U/L (46-116) Aspartate Amino Transferase (AST) 10 U/L (13-40) L Total Bilirubin 0.6 mg/dL (0.2-1.0) Urinalysis Test 07/11/24 19:30 Urine Color Light-yellow (Yellow) Urine Clarity Clear (Clear) Urine pH 7.0 (5.0-9.0) Urine Specific [place] 1.015 (1.001-1.035) Urine Protein Negative (Negative) Urine Ketones Negative (Negative) Urine Blood Negative /uL (Negative) Urine Nitrite Negative (Negative) Urine Bilirubin Negative (Negative) Urine Urobilinogen Normal mg/dL (Negative) Urine Leukocyte Esterase Negative /uL (Negative) Urine RBC 1 /hpf (0 - 3) Urine Microscopic WBC 3 /HPF (0-3) Urine Squamous Epithelial Cells None seen /hpf (<5) Urine Bacteria None seen /hpf (None Seen) Urine Glucose Trace mg/dL (Normal) Assessment/Plan Assessment/Plan Syncope and collapse to ruled out cardiac etiology Possible vasovagal Sinus bradycardia Ruled out carotid stenosis Type 2 diabetes hx prostate cancer Plan/Recommendation (Dr. Bey ): * Echocardiogram reveals EF 65% * Avoid AV juan blocking agent Reviewed 24 hour telemetry no SSS/pauses noted. The patient asymptomatic. Follow-up with the Cardiology in outpatient setting. This medical document was created using an electronic medical record system with voice recognition software and computerized dictation system. Although this document has been carefully reviewed, there might still be some phonetic and typographical errors. Occasional wrong-word or ``sound-alike substitutions may have occurred due to the inherent limitations of voice recognition software. These areas are purely typographical due to imperfections of the software programs and do not reflect any compromise in the patient's medical care. Please read the chart carefully and recognize, using context, where these substitutions have occurred. Plan discussed with: Patient Plan discussed with: Patient My Orders Orders - ROCKY VILLALOBOS Procedure Category Date Status Time Carotid Duplx W Color US 07/11/24 Resulted DOP 15:34 Date of Service: Jul 12, 2024 Billing Provider: ABY BEY MD Common Visit Codes: CONSULT ONLY Consultation Codes: [id number] CONSULT <45MIN ROCKY VILLALOBOS Jul 12, 2024 15:20
--- NOTE | 2024-07-12 23:02 | DVHPN2 ---
Consult Progress Note Subjective Other Systems: Patient was seen and evaluated in follow up. No cardiac events reported Denies chest pain or shortness of breath. Hematology panel is WNL. BS are WNL. Telemetry reviewed. Objective vital signs Vital Sign Date Time Temp Pulse Resp B/P (MAP) Pulse Ox O2 Delivery O2 Flow Rate FiO2 07/12/24 12:30 97.8 55 16 126/69 (88) 98 97.8 07/12/24 08:00 Room Air* 0 21 Total Intake and Output 07/11/24 07/11/24 07/12/24 15:00 23:00 07:00 Intake Total 200 ml Output Total 500 ml Balance -500 ml 200 ml medications Current Medications Medications Dose Ordered Sig/Joseph Route Start Time Stop Time Status Last Admin Dose Admin Ondansetron HCl 4 mg Q4HP PRN IV 07/11/24 13:45 Enoxaparin Sodium 40 mg DAILY SC 07/12/24 10:00 07/12/24 08:57 40 MG Acetaminophen 650 mg Q6HP PRN PO 07/11/24 13:45 Nitroglycerin 0.4 mg Q5MINP PRN SL 07/11/24 13:45 Morphine Sulfate 2 mg Q30M PRN IV 07/11/24 13:45 Diagnostic Test (Pha) 1 strip ACHS 07/11/24 17:00 07/12/24 11:30 1 STRIP Insulin Human Regular ACHS SC 07/11/24 17:00 07/11/24 17:19 2 UNITS Dextrose 50 ml UD PRN IV 07/11/24 17:00 Examination: GENERAL:Normal, HEENT:Normal, NECK:Normal, LUNGS:Normal, CVS:Normal, ABDOMEN:Normal laboratory and microbiology Laboratory Tests 07/12/24 07:04 Test 07/12/24 07:04 Range/Units Serum Glucose 124 H 74-106 mg/dL Problem List/Assessment/Plan Problem List/Assessment/Plan Assessment Syncope and collapse to rule out cardiac etiology. Possible vasovagal. Sinus bradycardia. Rule out carotid stenosis. Type 2 diabetes. History of prostate cancer. Plan/Recommendation Continued all current supportive medical care. Patient has been seen by Tracy Boyd NP on my behalf. We have discussed the plan with the patient. Echocardiogram reveals EF 65%. Avoid AV juan blocking agent. Reviewed 24 hour telemetry no SSS/pauses noted. The patient asymptomatic. Follow-up with the Cardiology in outpatient setting. Additional plan as per the hospital course. Plan discussed with: Patient Date of Service: Jul 12, 2024 Billing Provider: ABY BEY MD Cardiology Common Codes: [id number] INP/OBS CARE(Mod) Cardiology Consultation Codes: [id number] CONSULT <45MIN ABY BEY MD Jul 12, 2024 16:07
[2024-07-13 01:00] VITALS: BP 108/58; PULSE 50; RESP 18; TEMP 98.2; O2SAT 96
[2024-07-13 05:00] VITALS: BP 103/63; PULSE 50; RESP 18; TEMP 97.9; O2SAT 93
[2024-07-13 08:00] VITALS: PULSE 54; PULSE 60; RESP 14; O2SAT 100
[2024-07-13 08:30] VITALS: BP 99/63; PULSE 57; RESP 16; TEMP 98; O2SAT 98
--- NOTE | 2024-07-13 09:25 | ECG ---
[facility] Test Date: 2024-07-11 Test Time: 06:02:14 Pat Name: MORENO TORO Department: ED Room: 0273T Gender: M [place]: virgen : 1955 Requested By: KRISTIN YOU Order Number: [id number] Reading MD: Measurements Intervals [place] Rate: 49 P: 72 IA: 201 QRS: 72 QRSD: 109 T: 31 QT: 454 QTc: 410 Interpretive Statements Sinus bradycardia Please click the below link to view image of tracing.
--- NOTE | 2024-07-13 10:56 | DVHPN2 ---
Reviewed: Care Plan, H&P, Labs, Medications, Previous Orders, Radiology Changes from previous H/P or p: No Changes Cardiovascular: Other (Chest tightness) Objective Vitals Vital Signs Date Time Temp Pulse Resp B/P (MAP) Pulse Ox O2 Delivery O2 Flow Rate FiO2 07/13/24 08:30 98.0 57 16 99/63 (75) 98 98.0 07/12/24 20:00 Room Air* 0 21 Intake/Output Intake and Output 07/13/24 07:00 Intake Total 200 ml Balance 200 ml Intake Oral 200 ml # Voids 7 # Bowel Movements 1 General Appearance: Alert, Oriented X3, Cooperative, No acute distress Lungs: Clear to auscultation, Normal air movement Cardiovascular: Regular rate, Normal S1 Abdomen: Normal bowel sounds Medications Current Medications Medications Dose Ordered Sig/Joseph Route Start Time Stop Time Status Last Admin Dose Admin Ondansetron HCl 4 mg Q4HP PRN IV 07/11/24 13:45 Enoxaparin Sodium 40 mg DAILY SC 07/12/24 10:00 07/13/24 10:08 40 MG Acetaminophen 650 mg Q6HP PRN PO 07/11/24 13:45 Nitroglycerin 0.4 mg Q5MINP PRN SL 07/11/24 13:45 Morphine Sulfate 2 mg Q30M PRN IV 07/11/24 13:45 Diagnostic Test (Pha) 1 strip ACHS 07/11/24 17:00 07/13/24 06:41 1 STRIP Insulin Human Regular ACHS SC 07/11/24 17:00 07/11/24 17:19 2 UNITS Dextrose 50 ml UD PRN IV 07/11/24 17:00 Laboratory Results Laboratory Tests 07/12/24 07:04 Urinalysis Test 07/11/24 19:30 Urine Color Light-yellow (Yellow) Urine Clarity Clear (Clear) Urine pH 7.0 (5.0-9.0) Urine Specific [place] 1.015 (1.001-1.035) Urine Protein Negative (Negative) Urine Ketones Negative (Negative) Urine Blood Negative /uL (Negative) Urine Nitrite Negative (Negative) Urine Bilirubin Negative (Negative) Urine Urobilinogen Normal mg/dL (Negative) Urine Leukocyte Esterase Negative /uL (Negative) Urine RBC 1 /hpf (0 - 3) Urine Microscopic WBC 3 /HPF (0-3) Urine Squamous Epithelial Cells None seen /hpf (<5) Urine Bacteria None seen /hpf (None Seen) Urine Glucose Trace mg/dL (Normal) Labs and/or images reviewed: Labs reviewed by me, Image(s) reviewed by me Assessment/Plan Assessment/Plan Syncope possibly vasovagal: CT head negative, carotid ultrasound negative, chest x-ray negative, echocardiogram normal with 65% ejection fraction Asymptomatic bradycardia heart rate of 45, cardiology consult by Dr. Goldsmith appreciated awaiting further management TSH normal CBC and CMP within normal limits Troponin negative BNP normal Diabetes: Insulin sliding scale History of prostate prostate cancer status post surgery Time Spent 45 minutes Advanced care planning time 20 minutes Patient is full code Plan discussed with: Patient My Orders Orders - GHANSHYAM MIGUEL MD Procedure Category Date Status Time Head Without Contrast CT 07/12/24 Resulted 11:06 Date of Service: Jul 13, 2024 Billing Provider: GHANSHYAM MIGUEL MD Common Visit Codes: [id number] INP/OBS CARE(HIGH) GHANSHYAM MIGUEL MD Jul 13, 2024 10:56
--- NOTE | 2024-07-13 11:01 | DVHDS2 ---
Discharge Summary Date of Admission Jul 11, 2024 at 13:34 Date of Discharge: Jul 13, 2024 Admitting Diagnosis Syncope Wounds: None Labs/Diagnostic Data: Laboratory Results Test 07/13/24 05:52 07/12/24 07:04 07/11/24 19:30 07/11/24 07:04 POC Glucose 126 mg/dl (70-106) White Blood Count 4.9 10^3/uL (4.4-10.8) Red Blood Count 4.89 10^6/uL (4.5-5.90) Hemoglobin 14.8 g/dL (13.5-17.5) Hematocrit 42.8 % (41.0-53.0) Mean Corpuscular Volume 87.5 fL (80.0-100.0) Mean Corpuscular Hemoglobin 30.3 pg (28.0-32.0) Mean Corpuscular Hemoglobin Concent 34.6 g/dL (32.0-36.0) Red Cell Distribution Width 13.6 % (11.8-14.3) Platelet Count 228 10^3/uL (140-450) Mean Platelet Volume 7.7 fL (6.9-10.8) Neutrophils (%) (Auto) 57.8 % (37.0-80.0) Lymphocytes (%) (Auto) 30.4 % (10.0-50.0) Monocytes (%) (Auto) 8.1 % (0.0-12.0) Eosinophils (%) (Auto) 3.2 % (0.0-7.0) Basophils (%) (Auto) 0.5 % (0.0-2.0) Neutrophils # (Auto) 2.8 10 ^3/uL (1.6-8.6) Lymphocytes # (Auto) 1.5 10 ^3/uL (0.4-5.4) Monocytes # (Auto) 0.4 10 ^3/uL (0-1.3) Eosinophils # (Auto) 0.2 10 ^3/uL (0-0.8) Basophils # (Auto) 0 10 ^3/uL (0-0.2) Nucleated Red Blood Cells 0.1 % Sodium Level 138 mmol/L (136-145) Potassium Level 3.7 mmol/L (3.5-5.1) Chloride Level 104 mmol/L (98-107) Carbon Dioxide Level 27 mmol/L (20-31) Anion Gap 7 (5-15) Blood Urea Nitrogen 11 mg/dL (9-23) Creatinine 0.82 mg/dL (0.700-1.30) Glomerular Filtration Rate Calc 95 mL/min (>90) BUN/Creatinine Ratio 13.4 (10.0-20.0) Serum Glucose 124 mg/dL (74-106) Calcium Level 9.4 mg/dL (8.7-10.4) Total Bilirubin 0.6 mg/dL (0.2-1.0) Aspartate Amino Transferase (AST) 10 U/L (13-40) Alanine Aminotransferase (ALT) 21 U/L (7-40) Alkaline Phosphatase 60 U/L (46-116) Total Protein 7.2 g/dL (5.7-8.2) Albumin 4.2 g/dL (3.2-4.8) Urine Color Light-yellow (Yellow) Urine Clarity Clear (Clear) Urine pH 7.0 (5.0-9.0) Urine Specific [place] 1.015 (1.001-1.035) Urine Protein Negative (Negative) Urine Ketones Negative (Negative) Urine Blood Negative /uL (Negative) Urine Nitrite Negative (Negative) Urine Bilirubin Negative (Negative) Urine Urobilinogen Normal mg/dL (Negative) Urine Leukocyte Esterase Negative /uL (Negative) Urine RBC 1 /hpf (0 - 3) Urine Microscopic WBC 3 /HPF (0-3) Urine Squamous Epithelial Cells None seen /hpf (<5) Urine Bacteria None seen /hpf (None Seen) Urine Glucose Trace mg/dL (Normal) Urine Opiates Screen Neg (NEGATIVE) Urine Fentanyl Screen Neg (NEGATIVE) Urine Barbiturates Screen Neg (NEGATIVE) Urine Phencyclidine Screen Neg (NEGATIVE) Urine Amphetamines Screen Neg (NEGATIVE) Urine Benzodiazepines Screen Neg (NEGATIVE) Urine Cocaine Screen Neg (NEGATIVE) Urine Cannabinoids Screen Neg (NEGATIVE) Hemoglobin A1c 6.1 % A1C (<5.7) Magnesium Level 2.0 mg/dL (1.6-2.6) Troponin I High Sensitivity < 3 ng/L (</=54) B-Type Natriuretic Peptide 10.31 pg/mL (0-100) Triglycerides Level 73 mg/dL (< 150) Cholesterol Level 127 mg/dL (< 200) LDL Cholesterol 84 mg/dL (< 100) HDL Cholesterol 34 mg/dL (40-59) Thyroid Stimulating Hormone (TSH) 1.66 uIU/mL (0.55-4.78) Other Laboratory Tests 07/12/24 07:04 Brief Hx & Hospital Course: 69-year-old male with a history of diabetes prostate cancer status post surgery came in for possible syncopal episode while straining during bowel movement. All labs normal. Troponin negative. Carotid ultrasound negative. CT head negative chest x-ray negative echocardiogram 65 percent ejection fraction TSH normal CBC normal CMP normal BNP normal seen by Cardiology Dr. Goldsmith advised outpatient follow up and no further cardiac intervention as an inpatient. The patient is felt to have syncopal episode secondary to vasovagal syncope. Consults/Reason for consult Cardiology Dr. Vanda Goldsmith Operations or Procedures Echocardiogram Condition at Discharge: Fair Final Diagnosis/Problems List Syncope possibly vasovagal: CT head negative, carotid ultrasound negative, chest x-ray negative, echocardiogram normal with 65% ejection fraction Asymptomatic bradycardia heart rate of 45, cardiology consult by Dr. Goldsmith appreciated awaiting further management TSH normal CBC and CMP within normal limits Troponin negative BNP normal Diabetes: Insulin sliding scale History of prostate prostate cancer status post surgery Discharge Disposition: Home Discharge Instruct/Medications Diet: Cardiac 2g Na,low cholest Activity: Light activity Follow Up/Referral: Resume all previous home medications Follow up with the primary Dr in one week Follow up with the Cardiology Dr. Vanda Goldsmith in two weeks Medications: none 35 (Time taken for discharge summary 35 minutes) Discharge Statement: "Patient was advised to return to the ER or call 911 if any headaches, dizziness, shortness of breath, chest pain, abdominal pain, bleeding, fevers, or worsening of medical condition. Patient was counseled about treatment plan, medications, possible side effects, patientverbalized understanding. All questions were answered to the best of my ability. This discharge took greater then 30 minutes in planning, reviewing documentation, counseling the patient, and discussing with other team members." ASSESSMENT ASSESSMENT Hospital Course Improved Assessment Syncope possibly vasovagal: CT head negative, carotid ultrasound negative, chest x-ray negative, echocardiogram normal with 65% ejection fraction Asymptomatic bradycardia heart rate of 45, cardiology consult by Dr. Goldsmith appreciated awaiting further management TSH normal CBC and CMP within normal limits Troponin negative BNP normal Diabetes: Insulin sliding scale History of prostate prostate cancer status post surgery Date of Service: Jul 13, 2024 Billing Provider: GHANSHYAM MIGUEL MD Common Visit Codes: 14315-LRB/OBS DISCH DAY >30min GHANSHYAM MIGUEL MD Jul 13, 2024 11:01
[2024-07-13 12:18] VITALS: BP 120/54; PULSE 54; RESP 14; TEMP 98; O2SAT 100
[2024-07-13 12:30] VITALS: BP 115/55; PULSE 56; RESP 16; TEMP 97.7; O2SAT 96
--- NOTE | 2024-07-13 23:03 | DVHPN2 ---
Progress Note - Dictate Date Seen: Jul 13, 2024 Medical Necessity Reason Pt with a Central, PICC or Fol: No Subjective Patient was seen and evaluated in follow up. Patient has no new complaints at this time. Patient denies any cardiac symptoms. Patient is cardiac stable for discharge. Telemetry reviewed. vital signs Vital Sign Date Time Temp Pulse Resp B/P (MAP) Pulse Ox O2 Delivery O2 Flow Rate FiO2 07/13/24 12:30 97.7 56 16 115/55 (75) 96 97.7 07/13/24 08:00 Room Air* 0 21 Total Intake and Output 07/12/24 07/12/24 07/13/24 15:00 23:00 07:00 Intake Total 200 ml Balance 200 ml objective GENERAL: Alert and oriented x 3. No acute distress. EYES: PERRL, EOMI. Anicteric. HENT: Moist mucous membranes. LUNGS: Clear to auscultation bilaterally. CARDIOVASCULAR: Regular rate and rhythm. ABDOMEN: Soft, non-tender and non-distended. EXTREMITIES: No edema. NEUROLOGIC: No focal neurological deficits. SKIN: Warm, dry. laboratory and microbiology Laboratory Tests 07/12/24 07:04 Test 07/12/24 07:04 Range/Units Serum Glucose 124 H 74-106 mg/dL Problem List Syncope and collapse to rule out cardiac etiology. Possible vasovagal. Sinus bradycardia. Rule out carotid stenosis. Type 2 diabetes. History of prostate cancer. Assessment/Plan Continued all current supportive medical care. Echocardiogram reveals EF 65%. Avoid AV juan blocking agent. Follow-up with the Cardiology in outpatient setting. Additional plan as per the hospital course. Plan discussed with: Patient ABY BEY MD Jul 13, 2024 23:03
== END 2024-07-13 12:50 | disposition home or self-care (01) | DRG 74 ==
LOC: EDBD 05:58 → ER 05:58 → OVERFLOW 13:34 → TELE-WESTW 07-12 02:35
PROVIDERS: ADMIT Family Medicine; ATTEND Family Medicine
DX: G90.89 Other disorders of autonomic nervous system (principal); E11.9 Type 2 diabetes mellitus without complications; Z85.46 Personal history of malignant neoplasm of prostate; Z90.79 Acquired absence of other genital organ(s); Z80.1 Family history of malignant neoplasm of trachea, bronchus and lung; Z79.899 Other long term (current) drug therapy
CPT/HCPCS: 36415; 70450; 71045; 80048; 80053; 80061; 80307; 81001; 82962; 83036; 83735; 83880; 84443; 84484; 85025; 93005; 93306; 93886; 99291; 99292; G0378